=== PATIENT | female | born 1950 | race African-American/Black ===

== ENCOUNTER 2018-11-04 14:25 | Inpatient (IN) | payer MEDICARE, MEDICAID ==
[~2018-11-04] VITALS: Ht 157.5 cm; Wt 96.2 kg
[~2018-11-04 14:25] MED LIST: AMIO200T; AMLO10TA4; ASPI-785; CLAR10; CLON0.2T12; CLOP75TA16; DIGO125T82; FLONAS; FURO-151; GLIP5TAB12; HYDR-4135; METF1000; MONT10TA21; MULT-1116; PROT40; SIMV20TA2; WARF7.5T7
[2018-11-04] MEDS ORDERED: SODIUM CHLORIDE 0.9% 1,000 ML IV ONE (15:16)
[2018-11-04 16:50] LABS: BASOPHILS % 0.8 % (0.0-2.0); EOSINOPHILS % 0.8 % (0.0-5.0); HEMATOCRIT. 45.6 % (36.0-48.0); LYMPHOCYTES % 22.6 % (20.0-50.0); MEAN CORPUSCULAR HEMOGLOBIN 30.3 pg (28.0-32.0); MEAN PLATELET VOLUME 9.6 fl (7.4-10.4); MONOCYTES % 8.2 % (2.0-8.0); NEUTROPHILS % 67.6 % (40.0-76.0); PLATELET 203 x1000/uL (130-400); RED BLOOD CELL COUNT 4.96 mill/uL (4.2-5.4)
[2018-11-04 16:53] LABS: CHLORIDE 104 mEq/L (98-107)
[2018-11-04 16:54] LABS: INR 1.1; PROTHROMBIN TIME 11.4 sec (9.1-11.1)
[2018-11-04] MEDS ORDERED: ENOXAPARIN 120MG/0.8ML SYR SUBCUT ONE (17:45)
[2018-11-04] MEDS ORDERED: ASPIRIN 81MG TABLET PO ONE (17:45)
[2018-11-04] MEDS ORDERED: GUAIFENESIN 200MG/10ML SUGAR FREE UDC PO PRN (18:15)
[2018-11-04] MEDS ORDERED: LORAZEPAM 2MG/ML CPJ IV PRN (18:15)
[2018-11-04] MEDS ORDERED: HYDROCODONE/ACETAMINOPHEN 5/325MG TABLET PO PRN (18:15)
[2018-11-04] MEDS ORDERED: ENOXAPARIN 40MG/0.4ML SYR SUBCUT SCH (18:15)
[2018-11-04] MEDS ORDERED: MAGNESIUM/ALUMINUM HYDROXIDE/SIMETHICONE 30ML UDC PO PRN (18:15)
[2018-11-04] MEDS ORDERED: DOCUSATE SODIUM 100MG CAPSULE PO PRN (18:15)
[2018-11-04] MEDS ORDERED: NA PHOS,M-B/NA PHOS,DI-BA ENEMA 118ML PR PRN (18:15)
[2018-11-04] MEDS ORDERED: ACETAMINOPHEN 325MG TABLET PO PRN (18:15)
[2018-11-04] MEDS ORDERED: CLONIDINE 0.1MG TABLET PO PRN (18:15)
[2018-11-04] MEDS ORDERED: ONDANSETRON HCL 4MG/2ML INJ IV PRN (18:15)
[2018-11-04] MEDS ORDERED: IPRATROPIUM/ALBUTEROL 0.5-3(2.5)MG/3ML NEB INH PRN (18:15)
[2018-11-04] MEDS ORDERED: DIPHENHYDRAMINE 50MG/ML VIAL IV PRN (18:15)
[2018-11-04 18:34] LABS: CLARITY URINE CLEAR (CLEAR); COLOR URINE YELLOW (YELLOW); KETONES URINE NEGATIVE (NEGATIVE); LEUKOCYTE ESTERASE URINE NEGATIVE (NEGATIVE); NITRITE URINE NEGATIVE (NEGATIVE); OCCULT BLOOD URINE NEGATIVE (NEGATIVE); PH URINE 7.5 (4.5-8.0); PROTEIN URINE NEGATIVE (NEGATIVE); SPECIFIC GRAVITY URINE 1.002 (1.005-1.030); UROBILINOGEN URINE 0.2 E.U./dL (0.2-1.0)
[2018-11-04 21:25] VITALS: BP 131/91
[2018-11-04] MEDS ORDERED: MORPHINE SULFATE 10 MG/ML CPJ IV PRN (21:43)
[2018-11-04 22:00] VITALS: BP 99/63
[2018-11-04] MEDS ORDERED: DEXTROSE 50% WATER 50ML SYRINGE IV PRN (22:30)
[2018-11-04 23:38] LABS: CHLORIDE 107 mEq/L (98-107)
[2018-11-05] VITALS: BP 99/63
[2018-11-05] MEDS ORDERED: METF-414 PO (01:34)
[2018-11-05] MEDS ORDERED: FURO20TA4 PO (01:34)
[2018-11-05] MEDS ORDERED: APIX5TAB PO (01:34)
[2018-11-05] MEDS ORDERED: AMLO10TA80 PO (01:34)
[2018-11-05] MEDS ORDERED: MONT10TA24 PO (01:34)
[2018-11-05 04:00] VITALS: BP 101/67
[2018-11-05] MEDS: INSULIN LISPRO 100 UNITS/ML SUBCUT SCH ×2 (05:58→11:53)
[2018-11-05] MEDS: BLOOD SUGAR DIAGNOSTIC STRIP TEST SCH ×2 (05:58→11:53)
[2018-11-05 08:00] VITALS: BP 117/73
[2018-11-05 08:15] LABS: BASOPHILS % 0.8 % (0.0-2.0); HEMATOCRIT. 44.1 % (36.0-48.0); HEMOGLOBIN. 14.7 g/dL (12.0-16.0); LYMPHOCYTES % 37.3 % (20.0-50.0); MEAN CORPUSCULAR HEMOGLOBIN 30.5 pg (28.0-32.0); MEAN CORPUSCULAR VOLUME 91.9 fL (81.0-99.0); MEAN PLATELET VOLUME 10.1 fl (7.4-10.4); MONOCYTES % 11.1 % (2.0-8.0); NEUTROPHILS % 49.8 % (40.0-76.0); PLATELET 202 x1000/uL (130-400); RED CELL DISTRIBUTION WIDTH 14.1 % (11.6-14.6)
[2018-11-05 08:17] LABS: CHLORIDE 106 mEq/L (98-107)
[2018-11-05 08:26] LABS: LDL CHOLESTEROL 94 mg/dL (5-100)
[2018-11-05 08:27] LABS: HDL CHOLESTEROL 92 mg/dL (40-59); T4 FREE 1.62 ng/dL (0.76-1.46)
[2018-11-05] MEDS ORDERED: ASPIRIN 81MG EC TABLET PO SCH (09:00)
[2018-11-05] MEDS ORDERED: ENOXAPARIN 40MG/0.4ML SYR SUBCUT SCH (09:00)
[2018-11-05 12:00] VITALS: BP 109/72
[2018-11-05] MEDS ORDERED: DILTIAZEM HCL 30MG TABLET PO SCH (12:00)
[2018-11-05 12:57] VITALS: BP 109/72
[2018-11-05] MEDS ORDERED: APIXABAN 5 MG TABLET PO SCH (17:00)
== END 2018-11-05 17:00 | disposition home or self-care (01) | DRG 204 ==
LOC: ER 14:25 → 5WST 18:03 → EDBEDREQ 18:06 → EDBEDREQTM 18:06 → ENRESERV 19:57
PROVIDERS: ADMIT Internal Medicine; ATTEND Internal Medicine
DX: R55 Syncope and collapse (principal); I49.5 Sick sinus syndrome; I48.2 Chronic atrial fibrillation; I69.354 Hemiplegia and hemiparesis following cerebral infarction affecting left non-dominant side; D64.9 Anemia, unspecified; E11.9 Type 2 diabetes mellitus without complications; E78.00 Pure hypercholesterolemia, unspecified; I11.9 Hypertensive heart disease without heart failure; K21.9 Gastro-esophageal reflux disease without esophagitis; J45.909 Unspecified asthma, uncomplicated; Z79.01 Long term (current) use of anticoagulants; Z79.84 Long term (current) use of oral hypoglycemic drugs; Z79.899 Other long term (current) drug therapy
CPT/HCPCS: 36415; 71045; 80048; 80061; 82962; 83735; 84439; 84443; 84484; 85379; 93005; 96360; 96361; 96372; 99291; J1650; J7030

== ENCOUNTER 2022-05-10 06:05 | Inpatient (IN) | payer MEDICARE, MEDICAID ==
[~2022-05-10] VITALS: Ht 160 cm; Wt 108.0 kg
[~2022-05-10 06:05] MED LIST changes: -AMIO200T; -AMLO10TA4; +AMLO10TA80 PO; +APIX5TAB PO; -ASPI-785; -CLAR10; -CLON0.2T12; -CLOP75TA16; -DIGO125T82; -FLONAS; -FURO-151; +FURO20TA4 PO; -GLIP5TAB12; -HYDR-4135; +METF-414 PO; -METF1000; +MONT-39 PO; -MONT10TA21; -MULT-1116; -PROT40; -SIMV20TA2; -WARF7.5T7
[2022-05-10 09:37] LABS: BASOPHILS % 0.3 % (0.0-2.0); EOSINOPHILS % 0.8 % (0.0-5.0); HEMATOCRIT. 34.5 % (36.0-48.0); HEMOGLOBIN. 11.4 g/dL (12.0-16.0); LYMPHOCYTES % 15.1 % (20.0-50.0); MEAN PLATELET VOLUME 9.9 fl (7.4-10.4); MONOCYTES % 6.1 % (2.0-8.0); NEUTROPHILS % 77.7 % (40.0-76.0); PLATELET 176 x1000/uL (130-400); RED BLOOD CELL COUNT 3.92 mill/uL (4.2-5.4); RED CELL DISTRIBUTION WIDTH 14.9 % (11.6-14.6)
[2022-05-10 09:42] LABS: CHLORIDE 108 mEq/L (98-107)
[2022-05-10 09:43] LABS: INR 1.2
[2022-05-10] MEDS ORDERED: CEFTRIAXONE 1 G PREMIX 50 ML IV ONE (10:00)
[2022-05-10] MEDS ORDERED: PANTOPRAZOLE 80 MG in SODIUM CHLORIDE 0.9% 100 ML IV SCH ×2 (10:00→17:00)
[2022-05-10] MEDS ORDERED: ONDANSETRON HCL 4MG/2ML INJ IM ONE (10:00)
[2022-05-10] MEDS ORDERED: CEFTRIAXONE 1 G PREMIX 50 ML IV SCH (13:15)
[2022-05-10] MEDS: PANTOPRAZOLE 80 MG in SODIUM CHLORIDE 0.9% 100 ML IV SCH ×2 (13:26→15:08)
[2022-05-10 14:41] VITALS: BP 117/61
[2022-05-10 15:14] VITALS: BP 117/61
[2022-05-10] MEDS ORDERED: DEXTROSE 50% WATER 50ML SYRINGE IV PRN (15:15)
[2022-05-10] MEDS ORDERED: ONDANSETRON HCL 4MG/2ML INJ IV PRN (15:15)
[2022-05-10] MEDS ORDERED: METO-396 PO (16:42)
[2022-05-10] MEDS ORDERED: DILT60TA35 PO (16:43)
[2022-05-10] MEDS: BLOOD SUGAR DIAGNOSTIC STRIP TEST SCH ×2 (16:44→21:21)
[2022-05-10] MEDS ORDERED: ATOR-2 PO (16:44)
[2022-05-10] MEDS: INSULIN LISPRO 100 UNITS/ML SUBCUT SCH ×2 (16:45→21:00)
[2022-05-10 17:35] LABS: TOTAL IRON BINDING CAPACITY 344 ug/dL (250-450)
[2022-05-10] MEDS: SODIUM CHLORIDE 0.45% 1,000 ML IV SCH (17:46)
[2022-05-10] MEDS: PANTOPRAZOLE SODIUM 40 MG/VIAL IV SCH (17:46)
[2022-05-10 18:00] LABS: FOLIC ACID (FOLATE) SERUM 3.2 ng/mL (>5.38)
[2022-05-10] MEDS: GUAIFENESIN 200MG TABLET PO PRN (18:42)
[2022-05-10 20:00] VITALS: BP 117/57
[2022-05-10 21:18] LABS: HEMOGLOBIN 10.1 g/dL (12.0-16.0)
[2022-05-11] VITALS: BP 131/68
[2022-05-11] MEDS: DILTIAZEM HCL 60MG TABLET PO SCH ×4 (00:07→18:24)
[2022-05-11 00:48] LABS: HEMOGLOBIN 9.4 g/dL (12.0-16.0)
[2022-05-11 04:00] VITALS: BP 117/58
[2022-05-11] MEDS: PANTOPRAZOLE SODIUM 40 MG/VIAL IV SCH ×2 (05:21→18:25)
[2022-05-11] MEDS: BLOOD SUGAR DIAGNOSTIC STRIP TEST SCH ×4 (06:06→20:48)
[2022-05-11] MEDS: INSULIN LISPRO 100 UNITS/ML SUBCUT SCH ×4 (06:25→20:48)
[2022-05-11 07:15] LABS: BASOPHILS % 0.2 % (0.0-2.0); EOSINOPHILS % 0.3 % (0.0-5.0); HEMATOCRIT. 26.4 % (36.0-48.0); HEMOGLOBIN. 8.9 g/dL (12.0-16.0); LYMPHOCYTES % 25.7 % (20.0-50.0); MEAN CORPUSCULAR HEMOGLOBIN 29.4 pg (28.0-32.0); MEAN CORPUSCULAR VOLUME 87.5 fL (81.0-99.0); MEAN PLATELET VOLUME 10.3 fl (7.4-10.4); MONOCYTES % 8.5 % (2.0-8.0); NEUTROPHILS % 65.3 % (40.0-76.0); PLATELET 149 x1000/uL (130-400); RED BLOOD CELL COUNT 3.02 mill/uL (4.2-5.4); RED CELL DISTRIBUTION WIDTH 15.1 % (11.6-14.6)
[2022-05-11 08:00] VITALS: BP 105/72
[2022-05-11] MEDS: METOPROLOL TARTRATE 25MG TABLET PO SCH ×2 (09:00→20:49)
[2022-05-11] MEDS: SODIUM CHLORIDE 0.45% 1,000 ML IV SCH ×2 (09:07→23:40)
[2022-05-11 12:00] VITALS: BP 104/70
[2022-05-11 12:37] LABS: HEMATOCRIT 26.4 % (36.0-48.0); HEMOGLOBIN 8.9 g/dL (12.0-16.0)
[2022-05-11] MEDS: FOLIC ACID 1MG TABLET PO SCH (13:23)
[2022-05-11 16:00] VITALS: BP 123/73
[2022-05-11 20:00] VITALS: BP 122/69
[2022-05-12] VITALS: BP 119/93
[2022-05-12 04:00] VITALS: BP 120/63
[2022-05-12] MEDS: PANTOPRAZOLE SODIUM 40 MG/VIAL IV SCH ×2 (05:14→17:26)
[2022-05-12] MEDS: BLOOD SUGAR DIAGNOSTIC STRIP TEST SCH ×4 (05:54→21:55)
[2022-05-12] MEDS: INSULIN LISPRO 100 UNITS/ML SUBCUT SCH ×4 (06:10→21:00)
[2022-05-12 07:05] LABS: BASOPHILS % 0.5 % (0.0-2.0); EOSINOPHILS % 3.3 % (0.0-5.0); HEMATOCRIT. 26.6 % (36.0-48.0); HEMOGLOBIN. 8.9 g/dL (12.0-16.0); LYMPHOCYTES % 27.1 % (20.0-50.0); MEAN CORPUSCULAR HEMOGLOBIN 29.5 pg (28.0-32.0); MEAN CORPUSCULAR VOLUME 88.3 fL (81.0-99.0); MEAN PLATELET VOLUME 9.7 fl (7.4-10.4); MONOCYTES % 7.8 % (2.0-8.0); NEUTROPHILS % 61.3 % (40.0-76.0); PLATELET 151 x1000/uL (130-400); RED BLOOD CELL COUNT 3.02 mill/uL (4.2-5.4); RED CELL DISTRIBUTION WIDTH 15.5 % (11.6-14.6)
[2022-05-12 07:20] LABS: CHLORIDE 113 mEq/L (98-107)
[2022-05-12 08:00] VITALS: BP 104/59
[2022-05-12] MEDS: METOPROLOL TARTRATE 25MG TABLET PO SCH ×2 (09:00→21:00)
[2022-05-12] MEDS: DILTIAZEM HCL 60MG TABLET PO SCH ×2 (09:00→17:26)
[2022-05-12] MEDS: FOLIC ACID 1MG TABLET PO SCH (09:42)
[2022-05-12 12:00] VITALS: BP 120/64
[2022-05-12] MEDS ORDERED: PROT40 MT (12:34)
[2022-05-12] MEDS ORDERED: SUCR1TAB30 MT (12:38)
[2022-05-12 16:00] VITALS: BP 121/63
[2022-05-12 16:50] LABS: HEMATOCRIT 28.1 % (36.0-48.0); HEMOGLOBIN 9.1 g/dL (12.0-16.0)
[2022-05-12] MEDS: SUCRALFATE 1G TABLET PO SCH ×2 (17:26→21:55)
[2022-05-12 20:00] VITALS: BP 108/57
[2022-05-12 22:47] LABS: HEMATOCRIT 27.3 % (36.0-48.0); HEMOGLOBIN 8.9 g/dL (12.0-16.0)
[2022-05-12 22:54] LABS: INR 1.1; PROTHROMBIN TIME 11.5 sec (9.6-11.0)
[2022-05-13] VITALS (8 sets, daily range): BP systolic 104–135; BP diastolic 51–77
[2022-05-13] MEDS: POTASSIUM CHLORIDE INJ 30 MEQ in DEXT 5%/0.45% NACL 1000ML 1,000 ML IV SCH ×2 (00:01→16:55)
[2022-05-13 04:13] LABS: BASOPHILS % 0.5 % (0.0-2.0); EOSINOPHILS % 3.1 % (0.0-5.0); HEMATOCRIT. 29.1 % (36.0-48.0); HEMOGLOBIN. 9.5 g/dL (12.0-16.0); LYMPHOCYTES % 24.2 % (20.0-50.0); MEAN CORPUSCULAR HEMOGLOBIN 29.3 pg (28.0-32.0); MEAN CORPUSCULAR VOLUME 89.5 fL (81.0-99.0); MEAN PLATELET VOLUME 9.6 fl (7.4-10.4); MONOCYTES % 7.2 % (2.0-8.0); PLATELET 167 x1000/uL (130-400); RED BLOOD CELL COUNT 3.25 mill/uL (4.2-5.4); RED CELL DISTRIBUTION WIDTH 15.4 % (11.6-14.6)
[2022-05-13 04:20] LABS: INR 1.1; PROTHROMBIN TIME 11.4 sec (9.6-11.0)
[2022-05-13 04:27] LABS: CHLORIDE 113 mEq/L (98-107)
[2022-05-13] MEDS: PANTOPRAZOLE SODIUM 40 MG/VIAL IV SCH ×2 (05:38→17:39)
[2022-05-13] MEDS: SUCRALFATE 1G TABLET PO SCH ×4 (05:38→21:36)
[2022-05-13] MEDS: BLOOD SUGAR DIAGNOSTIC STRIP TEST SCH ×4 (05:38→21:36)
[2022-05-13] MEDS: INSULIN LISPRO 100 UNITS/ML SUBCUT SCH ×4 (05:38→21:37)
[2022-05-13] MEDS ORDERED: PROPOFOL 200MG/20ML VIAL IV ONE (11:21)
[2022-05-13] MEDS ORDERED: DEXAMETHASONE 4MG/ML 1ML VIAL ONE (11:23)
[2022-05-13] MEDS ORDERED: ONDANSETRON HCL 4MG/2ML INJ ONE (11:23)
[2022-05-13] MEDS: FOLIC ACID 1MG TABLET PO SCH (12:58)
[2022-05-13] MEDS: METOPROLOL TARTRATE 25MG TABLET PO SCH ×2 (12:58→21:36)
[2022-05-13] MEDS: DILTIAZEM HCL 60MG TABLET PO SCH ×2 (12:58→17:00)
[2022-05-13] MEDS: GUAIFENESIN 200MG TABLET PO PRN (17:49)
[2022-05-14] VITALS: BP 126/69
[2022-05-14] MEDS: GUAIFENESIN 200MG TABLET PO PRN ×2 (03:56→12:17)
[2022-05-14 04:00] VITALS: BP 128/82
[2022-05-14] MEDS: SUCRALFATE 1G TABLET PO SCH ×2 (06:06→12:17)
[2022-05-14] MEDS: BLOOD SUGAR DIAGNOSTIC STRIP TEST SCH ×2 (06:07→11:57)
[2022-05-14] MEDS: PANTOPRAZOLE SODIUM 40 MG/VIAL IV SCH (06:07)
[2022-05-14 06:33] LABS: CHLORIDE 111 mEq/L (98-107)
[2022-05-14 06:46] LABS: BASOPHILS % 0.1 % (0.0-2.0); HEMATOCRIT. 26.2 % (36.0-48.0); HEMOGLOBIN. 8.8 g/dL (12.0-16.0); LYMPHOCYTES % 16.1 % (20.0-50.0); MEAN CORPUSCULAR HEMOGLOBIN 29.5 pg (28.0-32.0); MEAN CORPUSCULAR VOLUME 88.4 fL (81.0-99.0); MEAN PLATELET VOLUME 10.2 fl (7.4-10.4); MONOCYTES % 2.7 % (2.0-8.0); NEUTROPHILS % 81.1 % (40.0-76.0); PLATELET 181 x1000/uL (130-400); RED BLOOD CELL COUNT 2.97 mill/uL (4.2-5.4); RED CELL DISTRIBUTION WIDTH 15.4 % (11.6-14.6)
[2022-05-14] MEDS: INSULIN LISPRO 100 UNITS/ML SUBCUT SCH ×2 (07:46→11:57)
[2022-05-14 09:00] VITALS: BP 129/76
[2022-05-14] MEDS: METOPROLOL TARTRATE 25MG TABLET PO SCH (09:04)
[2022-05-14] MEDS: FOLIC ACID 1MG TABLET PO SCH (09:04)
[2022-05-14] MEDS: DILTIAZEM HCL 60MG TABLET PO SCH (09:04)
[2022-05-14 12:00] VITALS: BP 122/78
[2022-05-14 12:46] VITALS: BP 129/76
== END 2022-05-14 15:20 | disposition home or self-care (01) | DRG 241 ==
LOC: ER 06:05 → 7WST 10:36 → ENRESERV 12:18 → 7EST 13:40 → 6WST 05-13 23:30
PROVIDERS: ADMIT Family Medicine; ATTEND Family Medicine
PROC: 0DB78ZX Excision of Stomach, Pylorus, Via Natural or Artificial Opening Endoscopic, Diagnostic (ICD-10-PCS; principal; 2022-05-13)
DX: K29.71 Gastritis, unspecified, with bleeding (principal); U07.1 COVID-19; I11.9 Hypertensive heart disease without heart failure; E83.51 Hypocalcemia; D64.9 Anemia, unspecified; E03.9 Hypothyroidism, unspecified; E11.9 Type 2 diabetes mellitus without complications; K44.9 Diaphragmatic hernia without obstruction or gangrene; I48.91 Unspecified atrial fibrillation; Z95.0 Presence of cardiac pacemaker; Z86.73 Personal history of transient ischemic attack (TIA), and cerebral infarction without residual deficits; Z79.01 Long term (current) use of anticoagulants; Z79.899 Other long term (current) drug therapy
CPT/HCPCS: 36415; 71045; 74176; 80048; 80053; 82607; 82728; 82746; 82962; 83036; 83540; 83550; 84132; 84484; 85014; 85018; 85025; 85044; 86850; 86900; 87426; 88305; 93005; 99285; C9113; C9803; J0696; J1100; J1815; J2405; J2704; J3480; J7050